=== PATIENT | female | born 1990 | race Caucasian/White ===

== ENCOUNTER 2019-05-25 12:00 | Inpatient (IN) ==
--- NOTE | 2019-05-25 17:46 | HISTORY AND PHYSICAL ---
CHIEF COMPLAINT: "I'm here for ." HISTORY OF PRESENT ILLNESS: A 29-year-old, G3, P1-0-1-1 at 39 weeks and 5 days who presents to Labor and delivery for a scheduled primary low transverse section with bilateral tubal ligation at maternal request. Her has been complicated by anemia, short interval , history shoulder dystocia with previous delivery, tobacco abuse, and anxiety and depression. Her last vaginal delivery was in April 2018, and she states that she pushed for 4 hours and then had a 60 second shoulder dystocia. Records were obtained from , which did reveal a 60 second shoulder dystocia that resolved with suprapubic pressure and [place]. Patient states that she also experienced severe pain during that delivery and describes it as a "traumatic. She also developed intrascapular pain due to regional anesthesia during that time. She has consulted with anesthesia during this for that concern. After full discussion of the risks of section and the benefits of a vaginal delivery, the patient ultimately elected to proceed with a primary low-transverse section. She also desires a bilateral tubal ligation for permanent sterilization. She has been counseled on risks versus benefits, and long-term reversible options of contraception. Consent was obtained. Estimated due date 05/28/2019. OBSTETRIC HISTORY: G1. in the first trimester (2010). G2, spontaneous vaginal delivery at 39 weeks, 7 pounds 2 ounces, female 9 (April 2018 -this was complicated by shoulder dystocia that lasted approximately 60 seconds and a prolonged second stage of labor. G3, current . GYNECOLOGIC HISTORY: Menarche was age 10. Her Pap smear was negative 2017. She does have a remote history of Chlamydia at 14 years old. PAST MEDICAL HISTORY: Anemia, anxiety, depression, bipolar disorder, tobacco abuse. MEDICATIONS: Fusion Plus, vitamin. ALLERGIES: Lamictal causes a headache. SOCIAL HISTORY: She smokes one-half pack per day. She denies any alcohol or drug use. FAMILY HISTORY: Mom with breast cancer. Father with hypertension. SURGICAL HISTORY: [place] tooth extraction. LABS: Hemoglobin 10, hematocrit 30.9, platelets 355,000. RPR nonreactive. Rubella immune. HIV nonreactive. Hepatitis C antibody nonreactive. Hepatitis B surface antigen nonreactive. Gonorrhea, chlamydia negative. Blood type A positive, negative antibody screen. Quad screen negative, GBS negative. PHYSICAL EXAMINATION: VITAL SIGNS: Temperature 97.6 degrees, blood pressure 117/81, pulse 61, height 5 feet 0 inches, weight 136 pounds, BMI 26.5. GENERAL: Alert, in no acute distress and appears well. CARDIOVASCULAR: Regular rate and rhythm. RESPIRATORY: No respiratory distress. ABDOMEN: Soft, gravid, nontender. EXTREMITIES: Normal range of motion. Nontender. Normal gait. ASSESSMENT: A 29-year-old G3, P 1-0-1-1 at 39 weeks and 5 days who presents for a primary low transverse section at maternal request with bilateral tubal ligation. complicated by a short interval , tobacco abuse, anxiety and depression. PLAN: 1. Admit to Labor and Delivery. We will obtain CBC, type and screen. Urinary drug screen on arrival. 2. NST on arrival. 3. NPO at midnight for a scheduled primary low transverse section with bilateral tubal ligation at 7 a.m. and on 05/26/2019. 4. Discussed risks of . Risks include, but not limited to, bleeding, infection, damage to surrounding organs, possible need for reoperation, possible need for blood transfusion, increased risk of VTE, complications from anesthesia, and even . She desires to proceed. She also desires permanent sterilization and has been counseled on risks versus benefits, risk of regret and long-term reversible options. 5. Preop anesthesia medications and Ancef 2 g prior to skin incision for scheduled .
[2019-05-26] MEDS ORDERED: PEPCID PO ONE (05:12)
[2019-05-26] MEDS ORDERED: REGLAN PO ONE (05:12)
[2019-05-26] MEDS ORDERED: LR 1,000 ML IV SCH (05:15)
[2019-05-26] MEDS ORDERED: KEFZOL 2 GM/D5W 2 GM/50 ML IVPB IV ONE (05:17)
[2019-05-26] MEDS ORDERED: BICITRA PO ONE (05:17)
[2019-05-26 05:42] LABS: URINE SOURCE VOIDED
[2019-05-26 05:55] LABS: UR AMPHETAMINES QUAL NONE DETECTED (NONE DETECT); UR BARBITUATES QUAL NONE DETECTED (NONE DETECT); UR BENZODIAZEPIN QUAL NONE DETECTED (NONE DETECT); UR CANNABINOIDS QUAL NONE DETECTED (NONE DETECT); UR COCAINE QUAL NONE DETECTED (NONE DETECT); UR METHADONE QUAL NONE DETECTED (NONE DETECT); UR OPIATES QUAL NONE DETECTED (NONE DETECT); UR OXYCODONE QUAL NONE DETECTED (NONE DETECT); UR PCP QUAL NONE DETECTED (NONE DETECT)
[2019-05-26 05:56] LABS: BASO# 0.06 X1000 (0.0-0.2); BASO% 0.5 % (0.0-0.8); EOS# 0.16 X1000 (0.0-0.7); EOS% 1.2 % (0.0-10.0); HEMATOCRIT 33.7 % (37.0-47.0); HEMOGLOBIN 11.2 g/dL (12.0-16.0); IMM GRAN% 0.8 % (0.0-0.5); LYMPH# 4.63 X1000 (1.2-3.4); LYMPH% 35.8 % (20.5-51.1); MCH 32.4 PG (27-31); MCHC 33.2 g/dL (33-37); MCV 97.4 FL (81-99); MONO# 0.94 X1000 (0.11-0.59); MONO% 7.3 % (1.7-9.3); MPV 11.7 FL (7.4-10.4); NEUT# 7.04 X1000 (1.4-6.5); NEUT% 54.4 % (42.2-75.2); PLT 304 X1000 (130-400); RBC 3.46 XMIL (4.2-5.4); RDW 13.9 % (11.5-14.5); WBC 12.93 X1000 (4.8-10.8)
[2019-05-26 06:06] LABS: BILIRUBIN URINE NEGATIVE (NEGATIVE); BLOOD URINE NEGATIVE (NEGATIVE); COLOR YELLOW; GLUCOSE URINE NEGATIVE (NEGATIVE); KETONE URINE NEGATIVE (NEGATIVE); LEUKOCYTES URINE LARGE (NEGATIVE); NITRITE URINE NEGATIVE (NEGATIVE); PH URINE 6.5; PROTEIN URINE 50 mg/dL (NEGATIVE); SP GRAVITY URINE 1.022; TURBIDITY URINE TURBID (CLEAR); UROBILINOGEN URINE NORMAL (NORMAL)
[2019-05-26 06:11] LABS: UR EPITHELIAL CELLS >10 /HPF (<10); URINE BACTERIA 2+ /HPF; URINE RBC <10 /HPF (<10); URINE WBC TNTC /HPF (<10)
[2019-05-26] MEDS ORDERED: DURAMORPH ONE (06:22)
[2019-05-26] MEDS ORDERED: FENTANYL ONE (06:23)
[2019-05-26 06:42] LABS: URINE CASTS NONE SEEN
[2019-05-26] MEDS ORDERED: PITOCIN ONE (07:40)
[2019-05-26] MEDS ORDERED: NEO-SYNEPHRINE ONE (07:40)
[2019-05-26] MEDS ORDERED: TORADOL ONE (07:40)
[2019-05-26] MEDS ORDERED: SODIUM CHLORIDE 0.9% 10 ML ONE (07:40)
[2019-05-26] MEDS ORDERED: ZOFRAN ONE (07:40)
[2019-05-26] MEDS ORDERED: DULCOLAX PR PRN (08:04)
[2019-05-26] MEDS ORDERED: HYDROXYZINE IM PRN (08:04)
[2019-05-26] MEDS ORDERED: BOOSTRIX VACCINE IM ONE (08:04)
[2019-05-26] MEDS ORDERED: AMBIEN PO PRN (08:04)
[2019-05-26] MEDS ORDERED: SODIUM CHLORIDE 0.9% INJ PRN (08:04)
[2019-05-26] MEDS ORDERED: MYLICON PO PRN (08:04)
[2019-05-26] MEDS ORDERED: MORPHINE IV PRN ×2 (08:04→08:44)
[2019-05-26] MEDS ORDERED: PITOCIN 20 UNITS/NS 20 UNITS/1,000 ML IV.SOLN IV ONE (08:04)
[2019-05-26] MEDS ORDERED: PITOCIN IM PRN (08:04)
[2019-05-26] MEDS ORDERED: PHENERGAN IV PRN (08:04)
[2019-05-26] MEDS ORDERED: M-M-R II VACCINE SUBQ ONE (08:04)
[2019-05-26] MEDS ORDERED: ZOFRAN PO PRN (08:08)
[2019-05-26] MEDS ORDERED: ZOFRAN ODT PO PRN (08:45)
[2019-05-26] MEDS ORDERED: BENADRYL IV PRN (08:45)
[2019-05-26] MEDS ORDERED: NARCAN INJ PRN (08:45)
[2019-05-26] MEDS ORDERED: ZOFRAN IV PRN ×2 (08:45)
--- NOTE | 2019-05-26 09:01 | OPERATIVE NOTE ---
PROCEDURE DATE: 05/26/2019 PREOPERATIVE DIAGNOSES: 1. A 29-year-old, 3, para 1-0-1-1, at 39 weeks and 5 days. 2. Elective section at maternal request. 3. Desires permanent sterilization. 4. Anemia. 5. Tobacco abuse. 6. Short interval 7. Hx shoulder dystocia with G2 POSTOPERATIVE DIAGNOSES: 1. A 29-year-old, 3, para 1-0-1-1, at 39 weeks and 5 days. 2. Elective section at maternal request. 3. Desires permanent sterilization. 4. Anemia. 5. Tobacco abuse. 6. Short interval 7. Hx shoulder dystocia with G2 PROCEDURES PERFORMED: 1. Primary low section via Pfannenstiel. 2. Bilateral tubal ligation via [place] method. SURGEON: Alfred De Leon DO MICROFICHE DUPLICATOR: Polo Collins III, MD. ANESTHESIA: Spinal. ESTIMATED BLOOD LOSS: 600 mL. INTRAVENOUS FLUIDS: 1800 mL. URINE OUTPUT: 150 mL. FINDINGS: Viable female in the cephalic presentation. Apgars 9 and 10. Weight 7 pounds 8 ounces. Normal-appearing uterus, tubes, and ovaries. COMPLICATIONS: None. SPECIMENS REMOVED: Bilateral fallopian tube segments. INDICATIONS AND CONSENT: The patient is a 29-year-old, G 3, P 1-0-1-1, at 39 weeks and 5, days who desires an elective primary section and bilateral tubal ligation. Risks, benefits, and alternatives to above the procedures have been discussed with the patient. Risks include, but are not limited to, bleeding, infection, damage to surrounding organs, possible need for reoperation, possible need for blood transfusion, increased risk of venous thromboembolism, risks associated with anesthesia, and even . Consent was obtained. DESCRIPTION OF PROCEDURE: The patient was taken to the operating room where spinal anesthesia was found to be adequate. She was then prepped and draped in a normal sterile fashion in the dorsal supine position with a leftward tilt. A Pfannenstiel skin incision was then made with a scalpel and carried through to the underlying layer of fascia with the Bovie. The fascia was incised in the midline and the incision extended laterally with Anen scissors. The superior aspect of the fascial incision was then grasped with Renetta clamps, elevated, and underlying rectus muscle dissected off bluntly and sharply with Anne scissors. The inferior aspect of this incision, which in a similar fashion, was grasped, tented up with Renetta clamps, and the rectus muscle dissected off bluntly and sharply with Anne scissors. Rectus muscles were then in the midline and the peritoneum entered bluntly. Peritoneal incision was then extended superiorly and inferiorly with good visualization of the bladder. Bladder blade was then inserted, and the vesicouterine peritoneum identified, grasped with pickups, and entered sharp with Metzenbaum scissors. This incision was then extended laterally and the bladder flap created digitally. The bladder blade was then reinserted and lower uterine segment incised in a transverse fashion with the scalpel. The uterine incision was then extended in a cephalad and caudad direction. The bladder blade was removed and the infant's head delivered atraumatically. Nose and mouth were suctioned, and the cord clamped and cut. The infant was handed off to awaiting pediatric nurse. Cord blood was obtained. The placenta was then removed manually. The uterus was exteriorized, and cleared of all clot and debris. The uterine incision was repaired with 0 Vicryl in a running locked fashion. A [id number] stitch was used at the right apex of the hysterotomy for hemostasis. Attention was then turned to the left fallopian tube which was identified and grasped with a Mark clamp. The Bovie cautery was used to make a hole in the mesosalpinx and approximately a 2 cm segment of fallopian tube was suture-ligated and excised using Metzenbaum scissors. The right fallopian tube was then identified and a segment removed in a similar fashion. The hysterotomy was noted to be hemostatic and the uterus was returned to the abdomen. The gutters were cleared of all clot and debris. The fascia was then reapproximated with 0 Vicryl in a running fashion. Subcutaneous fat layer was closed with 2-0 plain in a running fashion. Skin incision was reapproximated with 4-0 Monocryl in a subcuticular fashion with Dermabond placed atop. The patient tolerated the procedure well. All sponge, lap, and needle counts were correct x3. She received 2 g of Ancef prior to skin incision. She was taken to the recovery room in stable condition. [facility]
[2019-05-26] MEDS: MYLICON PO SCH ×4 (09:13→20:14)
[2019-05-26] MEDS: TORADOL IV SCH ×2 (15:29→20:14)
[2019-05-26] MEDS: PITOCIN 10 UNITS/NS 1,000 ML IV SCH (17:44)
[2019-05-26] MEDS: PERICOLACE PO SCH (20:14)
[2019-05-27] MEDS: PITOCIN 10 UNITS/NS 1,000 ML IV SCH ×2 (00:42→02:34)
[2019-05-27] MEDS: TORADOL IV SCH ×3 (02:30→13:50)
[2019-05-27 05:41] LABS: BASO# 0.05 X1000 (0.0-0.2); BASO% 0.3 % (0.0-0.8); EOS# 0.09 X1000 (0.0-0.7); EOS% 0.5 % (0.0-10.0); HEMATOCRIT 26.9 % (37.0-47.0); HEMOGLOBIN 8.8 g/dL (12.0-16.0); IMM GRAN# 0.04 X1000 (0.0-0.04); IMM GRAN% 0.2 % (0.0-0.5); LYMPH# 3.29 X1000 (1.2-3.4); LYMPH% 19.4 % (20.5-51.1); MCH 32.5 PG (27-31); MCHC 32.7 g/dL (33-37); MCV 99.3 FL (81-99); MONO# 0.98 X1000 (0.11-0.59); MONO% 5.8 % (1.7-9.3); MPV 11.4 FL (7.4-10.4); NEUT# 12.47 X1000 (1.4-6.5); NEUT% 73.8 % (42.2-75.2); PLT 258 X1000 (130-400); RBC 2.71 XMIL (4.2-5.4); RDW 13.6 % (11.5-14.5); WBC 16.92 X1000 (4.8-10.8)
--- NOTE | 2019-05-27 07:37 | OB/GYN PROGRESS NOTE ---
- Subjective Pt seen and examined. Pt is a POD#1 s/p primary CD with BTL. Currently w/o complaints. Pain well controlled with [employer] meds. Reports difficulty with breast feeding but will continue to try and supplement with formula. Tolerating regular diet. Denies fever, chills, nausea, vomiting. OB Physical Exam Vital Signs - 8 hr 05/27/19 00:00 05/27/19 04:10 Temperature 97.3 F L 98.7 F Pulse Rate 82 83 Respiratory Rate 16 18 Blood Pressure 112/72 113/72 O2 Sat by Pulse Oximetry 99 100 - CONSTITUTIONAL General Appearance: appears well, alert, no apparent distress - RESPIRATORY Respiratory: lungs clear - CARDIOVASCULAR Cardiovascular: regular rate, rhythm - GASTROINTESTINAL (ABDOMEN) Abdominal Exam: non tender (FF at umbilicus), soft - MUSCULOSKELETAL Extremity: no calf tenderness - SKIN Integumentary: normal color, warm/dry (incision: c/d/i) - PSYCHIATRIC Psych/Mental Status: normal mood/affect, oriented x 3 Active Medications Generic Name Dose Route Start Last Admin Trade Name Freq PRN Reason Stop Dose Admin Bisacodyl 10 mg 05/26/19 08:04 Dulcolax [place] PRN PRN gas unrelieved by Mylicon Diphenhydramine HCl 12.5 mg 05/26/19 08:45 Benadryl IV 05/27/19 08:44 Q6H PRN PRN ITCHING IF ZOFRAN INEFFECTIVE Hydroxyzine HCl 50 mg 05/26/19 08:04 Atarax PO Q3-4H PRN PRN Nausea Hydroxyzine HCl 50 mg 05/26/19 08:04 Hydroxyzine IM Q3-4H PRN PRN Nausea Lactated Ringer's 1,000 mls @ 0 mls/hr 05/26/19 05:15 Lr IV .Q0M MAYCO As Directed Lactated Ringer's 1,000 mls @ 125 mls/hr 05/27/19 08:04 Lr IV .Q8H MAYCO Ibuprofen 800 mg 05/26/19 08:04 Motrin PO Q8H PRN PRN Pain Ketorolac Tromethamine 30 mg 05/26/19 14:00 05/27/19 02:30 Toradol IV 05/27/19 14:01 30 mg Q6H MAYCO Administration Morphine Sulfate 2 - 4 mg 05/26/19 08:44 Morphine IV Q2H PRN PRN Pain Naloxone HCl 0.4 mg 05/26/19 08:45 Narcan INJ 05/27/19 08:44 DIRECTED PRN PRN Ondansetron HCl 4 mg 05/26/19 08:08 Zofran PO Q6H PRN PRN Nausea And Vomiting Ondansetron HCl 4 mg 05/26/19 08:45 Zofran Odt PO 05/27/19 08:44 DIRECTED PRN PRN Ondansetron HCl 4 mg 05/26/19 08:45 05/26/19 12:44 Zofran IV 05/27/19 08:44 4 mg DIRECTED PRN PRN Administration Ondansetron HCl 4 mg 05/26/19 08:45 Zofran IV 05/27/19 08:44 Q4-6H PRN PRN Itching Oxycodone/Acetaminophen 1 each 05/26/19 08:04 Percocet-10 PO Q3-4H PRN PRN Pain (7-10 on Pain Scale) Oxycodone/Acetaminophen 1 each 05/26/19 08:04 Percocet-5 PO Q3-4H PRN PRN Pain (1-6 on Pain Scale) Oxytocin 20 unit 05/26/19 08:04 Pitocin IM PRN PRN Severe bleeding Promethazine HCl 12.5 mg 05/26/19 08:04 Phenergan IV Q4H PRN PRN Nausea And Vomiting Senna/Docusate Sodium 1 each 05/26/19 21:00 05/26/19 20:14 Pericolace PO 1 each QHS MAYCO Administration Simethicone 80 mg 05/26/19 09:00 05/26/19 20:14 Mylicon PO 80 mg PC + HS MAYCO Administration Simethicone 80 mg 05/26/19 08:04 Mylicon PO PRN PRN GAS Sodium Chloride 10 ml 05/26/19 08:04 Sodium Chloride 0.9% INJ PRN PRN Dilute Phenergan for IV use Zolpidem Tartrate 10 mg 05/26/19 08:04 Ambien PO HS PRN PRN Sleep Laboratory Results - last 24 hr 05/27/19 05:01 WBC 16.92 H RBC 2.71 L Hgb 8.8 L D Hct 26.9 L D MCV 99.3 H MCH 32.5 H MCHC 32.7 L RDW Std Deviation 13.6 Plt Count 258 MPV 11.4 H Immature Gran % (Auto) 0.2 Neut % (Auto) 73.8 Lymph % (Auto) 19.4 L [place] % (Auto) 5.8 Eos % (Auto) 0.5 Baso % (Auto) 0.3 Immature Gran # (Auto) 0.04 Neut # (Auto) 12.47 H Lymph # (Auto) 3.29 [place] # (Auto) 0.98 H Eos # (Auto) 0.09 Baso # (Auto) 0.05 OB Assessment & Plan (1) delivery delivered Status: Acute Plan: 29yo POD#1 s/p primary CD with BTL -HD stable. Will start pt on ferrous sulfate -d/c staple cutter and transition to po pain meds -d/c rinaldi -oob to ambulation -reg diet -continue routine PP care
[2019-05-27] MEDS ORDERED: LR 1,000 ML IV SCH (08:04)
[2019-05-27] MEDS: MYLICON PO SCH ×4 (09:13→20:43)
[2019-05-27] MEDS: FERROUS SULFATE PO SCH (09:13)
[2019-05-27] MEDS: ATARAX PO PRN (11:22)
[2019-05-27] MEDS: PERCOCET-5 PO PRN (11:23)
[2019-05-27] MEDS: PERCOCET-10 PO PRN ×2 (17:53→22:35)
[2019-05-27] MEDS: MOTRIN PO PRN (20:43)
[2019-05-27] MEDS: PERICOLACE PO SCH (20:43)
[2019-05-28] MEDS: MOTRIN PO PRN ×2 (06:03→20:05)
[2019-05-28] MEDS: PERCOCET-10 PO PRN ×3 (06:03→20:05)
[2019-05-28] MEDS: ATARAX PO PRN ×2 (06:04→20:06)
[2019-05-28] MEDS: FERROUS SULFATE PO SCH (08:08)
[2019-05-28] MEDS: MYLICON PO SCH ×4 (08:09→20:05)
[2019-05-28] MEDS: PERCOCET-5 PO PRN (09:55)
--- NOTE | 2019-05-28 12:01 | OB/GYN PROGRESS NOTE ---
- Subjective PO2 vssaf no cx s/nt cdi -cce ambulating A PO2 elec. c/s due to prior SD no cx routine halfway in am OB Physical Exam Vital Signs - 8 hr 05/28/19 04:20 05/28/19 06:05 05/28/19 09:11 Temperature 97.7 F Pulse Rate 84 70 73 Respiratory Rate 16 18 18 Blood Pressure 133/70 127/80 O2 Sat by Pulse Oximetry 98 - CONSTITUTIONAL General Appearance: appears well Active Medications Generic Name Dose Route Start Last Admin Trade Name Freq PRN Reason Stop Dose Admin Bisacodyl 10 mg 05/26/19 08:04 Dulcolax [place] PRN PRN gas unrelieved by Mylicon Ferrous Sulfate 325 mg 05/27/19 09:00 05/28/19 08:08 Ferrous Sulfate PO 325 mg DAILY MAYCO Administration Hydroxyzine HCl 50 mg 05/26/19 08:04 05/28/19 06:04 Atarax PO 50 mg Q3-4H PRN PRN Administration Nausea Hydroxyzine HCl 50 mg 05/26/19 08:04 Hydroxyzine IM Q3-4H PRN PRN Nausea Ibuprofen 800 mg 05/26/19 08:04 05/28/19 06:03 Motrin PO 800 mg Q8H PRN PRN Administration Pain Ondansetron HCl 4 mg 05/26/19 08:08 Zofran PO Q6H PRN PRN Nausea And Vomiting Oxycodone/Acetaminophen 1 each 05/26/19 08:04 05/28/19 06:03 Percocet-10 PO 1 each Q3-4H PRN PRN Administration Pain (7-10 on Pain Scale) Oxycodone/Acetaminophen 1 each 05/26/19 08:04 05/28/19 09:55 Percocet-5 PO 1 each Q3-4H PRN PRN Administration Pain (1-6 on Pain Scale) Oxytocin 20 unit 05/26/19 08:04 Pitocin IM PRN PRN Severe bleeding Senna/Docusate Sodium 1 each 05/26/19 21:00 05/27/19 20:43 Pericolace PO 1 each QHS MAYCO Administration Simethicone 80 mg 05/26/19 09:00 05/28/19 08:09 Mylicon PO 80 mg PC + HS MAYCO Administration Simethicone 80 mg 05/26/19 08:04 Mylicon PO PRN PRN GAS Zolpidem Tartrate 10 mg 05/26/19 08:04 Ambien PO HS PRN PRN Sleep
[2019-05-28] MEDS: PERICOLACE PO SCH (20:05)
[2019-05-29] MEDS: PERCOCET-5 PO PRN (03:40)
[2019-05-29] MEDS ORDERED: PNEUMOVAX 23 IM ONE (08:15)
[2019-05-29] MEDS: MOTRIN PO PRN (08:45)
[2019-05-29] MEDS: MYLICON PO SCH (08:46)
[2019-05-29] MEDS: FERROUS SULFATE PO SCH (08:46)
--- NOTE | 2019-05-29 09:07 | DISCHARGE SUMMARY ---
ADMISSION DATE: 05/26/2019 DISCHARGE DATE: 05/29/2019 HOSPITAL COURSE: The patient is a 29-year-old, 2, para 1, now 2, who is admitted for primary section, elective. The patient had a shoulder dystocia on her 1st delivery and she desired to prevent risk of injury via repeat shoulder dystocia. She underwent a primary section on the day of admission. Please see her separate operative note. Her postoperative course is uncomplicated. On postoperative day #1, she is afebrile with stable vital signs. Ambulating, voiding, tolerating a regular diet. Hemoglobin is 8.8, down from 11.2. On day #2 ambulating, voiding, tolerating a regular diet. Vital signs are stable. She is afebrile. She is discharged home on postoperative day #3 in stable condition. She is asked to follow up in the office in 1 week. Call the office for pain, fever greater than 100.4, abnormal uterine bleeding. Maintain pelvic rest and regular diet. Continue vitamins with iron. A prescription for Motrin and Percocet provided.
[2019-05-29 10:26] VITALS: BP 131/68
== END 2019-05-29 10:18 | disposition home or self-care (01) | DRG 785 ==
LOC: LD 05-26 05:05
PROVIDERS: ADMIT Student in an Organized Health Care Education/Training Program; ATTEND Student in an Organized Health Care Education/Training Program